=== PATIENT | female | born 1975 | race Caucasian/White ===

== ENCOUNTER → 2017-02-07 | Outpatient (CLI) | payer BC ==
--- NOTE | 2017-02-07 10:46 | RAD ---
Cervical spine radiograph 3 views 02/07/2017. Clinical indication: Neck pain status post fall. Comparison: Cervical spine radiograph 02/20/2016. Findings: Stable minimal reversal of the normal cervical lordosis centered at C4-C5. Vertebral body heights and disc spaces are maintained. There is mild uncovertebral hypertrophy at C5-C6. No signal or prevertebral soft tissue thickening. Impression: Minimal reversal of the normal cervical lordosis at C4-C5 with no acute cervical spine fracture or subluxation.
== END | disposition home or self-care (01) ==
LOC: DXRADRC 08:25
PROVIDERS: ATTEND Physician Assistant Medical
DX: M54.2 Cervicalgia (principal); Z91.81 History of falling
CPT/HCPCS: 72040

== ENCOUNTER → 2017-03-20 | Outpatient (CLI) | payer BC ==
--- NOTE | 2017-03-20 12:54 | RAD ---
Indication pain. Chronic. AP and lateral views of the lumbar spine were obtained as well as a coned view targeted to the lumbosacral junction. Vertebral height and alignment are well maintained. There is very slight disc space narrowing at L5-S1. An acute bony finding is not seen. IMPRESSION: Minimal spondylitic changes. No acute finding seen
--- NOTE | 2017-03-20 13:11 | RAD ---
Indication fall several months previously. Persistent pain. AP and lateral views of the thoracic spine were obtained as well as a swimmer's view. Vertebral height alignment and disc spaces appear unremarkable. No acute finding is seen. There is very minimal scoliosis. There are no significant degenerative changes. IMPRESSION: Unremarkable plain films of the thoracic spine
== END | disposition home or self-care (01) ==
LOC: DXRADRC 12:11
PROVIDERS: ATTEND Nurse Practitioner Family
DX: M47.896 Other spondylosis, lumbar region (principal); M41.84 Other forms of scoliosis, thoracic region; W19.XXXD Unspecified fall, subsequent encounter
CPT/HCPCS: 72072; 72100

== ENCOUNTER → 2017-06-21 | Outpatient (CLI) | payer BC ==
--- NOTE | 2017-06-21 16:09 | RAD ---
Renal ultrasound 06/21/2017 Indication: Microscopic hematuria Comparison study: None Discussion: Ultrasound evaluation of the kidneys was performed. Static images are submitted to PACS. Right kidney measures 10 cm in length. No hydronephrosis, focal renal lesion, or nephrolithiasis is identified on the right. Color Doppler imaging is unremarkable on the right. The left kidney measures 11.2 cm in length. No nephrolithiasis, hydronephrosis, or focal renal lesion is seen on the left. Blood flow to the left left kidney is unremarkable on color Doppler imaging. Limited visualization of the bladder is normal. Bilateral ureteral jets are seen. Prevoid bladder volume 414 cc. Post void bladder volume 42 cc. There is a 5 cm mass which appears to be contiguous with the superior aspect of the uterus. This may represent a partially pedunculated fibroid. Internal blood flow seen on color Doppler imaging. Pelvic ultrasound versus MRI is recommended for further characterization. Impression: 1. Unremarkable sonographic appearance of the kidneys. 2. 5 cm mass which appears to be contiguous with superior aspect of the uterus. This may represent a pedunculated fibroid. Recommend pelvic ultrasound versus MRI for further characterization.
== END | disposition home or self-care (01) ==
LOC: US 13:12
PROVIDERS: ATTEND Nurse Practitioner Family
DX: R31.29 Other microscopic hematuria (principal)
CPT/HCPCS: 76770

== ENCOUNTER → 2017-06-29 | Outpatient (CLI) | payer BC ==
--- NOTE | 2017-06-29 14:38 | RAD ---
Indication: Questionable mass in the region of the uterus. Transabdominal and transvaginal sonography was performed. The uterus measures 8.7 x 5.2 x 4.0 cm. There is a large rounded soft tissue mass arising from the left uterus approximately 5 cm in diameter suggestive of a pedunculated fibroid. Second smaller fibroid is seen anteriorly measuring approximately 1.2 cm in size. Endometrium is approximately 14 mm in thickness. There is a slightly echogenic structure noted within the endometrium measuring approximately 9 mm x 9 mm. The right ovary measures 2.4 x 2.2 x 2.2 cm and the left ovary measures 3.6 x 2.9 x 2.1 cm. There is a 2.5 cm cyst within the left ovary. No free fluid or other adnexal mass is seen. Impression: 1. Fibroid uterus. 2. Abnormal endometrial thickening of 14 mm with questionable endometrial mass. This could be owing to polyp but other etiologies cannot be excluded. 3. Left ovarian cyst.
== END | disposition home or self-care (01) ==
LOC: US 13:05
PROVIDERS: ATTEND Nurse Practitioner Family
DX: D25.9 Leiomyoma of uterus, unspecified (principal); N83.202 Unspecified ovarian cyst, left side
CPT/HCPCS: 76830; 76856